=== PATIENT | female | born 1960 ===

== ENCOUNTER 2020-11-15 17:10 | Emergency (ER) | payer OTHER ==
[~2020-11-15] VITALS: Ht 162.6 cm; Wt 73.8 kg
[2020-11-15 17:20] VITALS: BP 161/94
== END 2020-11-15 22:36 | disposition left against medical advice (07) ==
LOC: ED 17:20
DX: F10.129 Alcohol abuse with intoxication, unspecified (principal); R47.81 Slurred speech; Y90.0 Blood alcohol level of less than 20 mg/100 ml
CPT/HCPCS: 36415; 80320; 99283; G0480